=== PATIENT | female | born 1980 | race Caucasian/White ===

== ENCOUNTER 2018-05-23 15:08 | Emergency (ER) | payer OTHER ==
[~2018-05-23] VITALS: Ht 157.5 cm; Wt 65.6 kg
[~2018-05-23 15:08] MED LIST: IBUP-1223 PO; OXYC-302 PO
[2018-05-23] MEDS ORDERED: IBUPROFEN 200 MG TABLET ONE (15:51)
[2018-05-23] MEDS ORDERED: IBUPROFEN 200 MG TABLET PO ONE (16:00)
[2018-05-23 16:27] VITALS: BP 146/89
== END 2018-05-23 16:31 | disposition home or self-care (01) ==
LOC: ED 16:25
DX: S42.022A Displaced fracture of shaft of left clavicle, initial encounter for closed fracture (principal); F17.210 Nicotine dependence, cigarettes, uncomplicated; W18.39XA Other fall on same level, initial encounter; Y93.53 Activity, golf; Y92.328 Other athletic field as the place of occurrence of the external cause; Y99.8 Other external cause status
CPT/HCPCS: 99284